=== PATIENT | female | born 1930 | race Caucasian/White ===

== ENCOUNTER 2017-10-08 12:14 | Inpatient (IN) | payer MEDICARE, MEDICAID ==
[~2017-10-08] VITALS: Ht 152.4 cm; Wt 49.9 kg
--- NOTE | 2017-10-08 12:30 | NUR ---
aaox3, bibra c/o left hip pain s/p glf, -ko. skin is warm and dry. resp is even and unlabored with nad noted. placed on monitor. will continuously monitor the patient. dr vaz at for eval.
[2017-10-08 12:50] LABS: BASOPHILS # (AUTO) 0.1 /CMM (0.0-0.2); BASOPHILS % (AUTO) 0.8 % (0.0-2.0); EOSINOPHILS # (AUTO) 0.1 /CMM (0.0-0.7); EOSINOPHILS % (AUTO) 1.2 % (0.0-6.0); HEMATOCRIT 44 % (33-45); HEMOGLOBIN 14.7 g/dL (11.5-14.8); LYMPHOCYTES # (AUTO) 1.1 /CMM (0.8-4.8); LYMPHOCYTES % (AUTO) 15.1 % (20.0-44.0); MEAN CORPUSCULAR HEMOGLOBIN 29 PG (26.0-33.0); MEAN CORPUSCULAR HGB CONC 33 g/dl (31.0-36.0); MEAN CORPUSCULAR VOLUME 86 fL (82-100); MONOCYTES % (AUTO) 14.6 % (2.0-12.0); NEUTROPHILS # (AUTO) 4.8 /CMM (1.8-8.9); NEUTROPHILS % (AUTO) 68.3 % (43.0-81.0); PLATELET COUNT (AUTO) 174 /CMM (150-450); RDW COEFFICIENT OF VARIATION 16.8 (11.5-15.0); RED BLOOD CELL COUNT(AUTO) 5.12 MIL/uL (4.0-5.2); WHITE BLOOD COUNT (AUTO) 7.1 K/uL (4.3-11.0)
[2017-10-08 12:54] LABS: CALCIUM, SERUM 9.1 mg/dL (8.5-10.1); CARBON DIOXIDE 25 mmol/L (21-32); CHLORIDE 102 mmol/L (98-107); CREATININE 0.9 mg/dL (0.6-1.3); GLUCOSE 105 mg/dL (74-106); POTASSIUM 3.9 mmol/L (3.5-5.1); SODIUM SERUM 136 mmol/L (136-145); UREA NITROGEN, BLOOD 19 mg/dL (7-18)
[2017-10-08 12:58] LABS: INR 1.06 (0.87-1.13)
[2017-10-08 13:00] LABS: ALANINE AMINOTRANSFERASE 28 U/L (12-78); ALBUMIN 3.3 g/dL (3.4-5.0); ALKALINE PHOSPHATASE 98 U/L (46-116); ASPARTATE AMINOTRANSFERASE 21 U/L (15-37); BILIRUBIN,DIRECT 0.3 mg/dL (0.0-0.2); BILIRUBIN,TOTAL 1.5 mg/dL (0.2-1.0)
[2017-10-08 13:02] LABS: TROPONIN I < 0.017 ng/mL (0.00-0.056)
--- NOTE | 2017-10-08 13:05 | NUR ---
Juwan at BS.
--- NOTE | 2017-10-08 13:40 | NUR ---
CALLED [employer] BLIND AIDE WAS PAGED.
--- NOTE | 2017-10-08 13:40 | NUR ---
ZIGZAG MACHINE OPERATOR NOTES PATIENT RECEIVED VIA GURNEY FROM ED, ALERT AND ORIENTED TO PERSON AND TIME, CONGOLESE SPEAKING BUT CAN UNDERSTAND SOME NIGERIEN. PATIENT NOTED WITH NO SOB, BREATHING EVEN AND UNLABORED. NOTED WITH NO COMPLAINT OF PAIN AT THIS TIME, NO SIGNS AND SYMPTOMS OF DISTRESS. PATIENT'S SON AT BEDSIDE. SKIN CHECK DONE, NOTED PT WITH IV PERIPHERAL LINE ON LEFT ARM, PATENT. ORIENTED PATIENT TO ROOM AND USE OF CALL LIGHT. KEPT PT SAFE AND DRY, CLEAN AND COMFORTABLE. BED IN LOW POSITION AND LOCKED IN PLACE. WILL CONTINUE TO MONITOR.
[2017-10-08] MEDS ORDERED: MAGNESIUM HYDROXIDE 30 ML UDC PO PRN (14:30)
[2017-10-08] MEDS ORDERED: ONDANSETRON HCL/PF 4 MG/2 ML VIAL IVP PRN (14:30)
[2017-10-08] MEDS ORDERED: HYDROCODONE/APAP 5/325MG 1 EACH TABLET PO PRN (14:30)
[2017-10-08] MEDS ORDERED: Z GUARD REMEDY 2 OZ OINT TP PRN (14:30)
[2017-10-08] MEDS ORDERED: DILTIAZEM HCL 50 MG IV IV PRN (14:30)
[2017-10-08] MEDS ORDERED: ZOLPIDEM TARTRATE 5 MG TABLET PO PRN (14:30)
[2017-10-08] MEDS ORDERED: MAG HYDROX/AL HYDROX/SIMETH 30 ML UDC PO PRN (14:30)
--- NOTE | 2017-10-08 15:00 | NUR ---
REPORT GIVEN TO KARIN CASTLE FOR NOEMI TELE [phone]
[2017-10-08 15:33] LABS: THYROID STIMULATING HORMONE 1.863 uIU/mL (0.358-3.74)
[2017-10-08 16:00] VITALS: BP 143/95
[2017-10-08] MEDS: IV NS 0.9% 1,000 ML IV PRN (16:41)
--- NOTE | 2017-10-08 18:30 | NUR ---
CHIEF BUILDING INSPECTOR CLOSING NOTES PATIENT RESTING COMFORTABLY IN BED, NO SOB, BREATHING EVEN AND UNLABORED, NOTED WITH NO FACIAL GRIMACING, NO SIGNS AND SYMPTOMS OF ACUTE DISTRESS. PATIENT WITH POOR SAFETY AWARENESS, PLACED BED IN LOW POSITION AND LOCKED IN PLACE. PATIENT WITH IV NS INFUSING WELL @ 75 CC/HR VIA PERIPHERAL LINE AT [facility]. KEPT PATIENT SAFE AND DRY, CLEAN AND COMFORTABLE.
--- NOTE | 2017-10-08 19:15 | NUR ---
RN OPENING NOTES RECEIVED REPORT FROM TIN PT RESTING IN BED. NO COMPLAINTS OF PAIN OR DISTRESS AT THIS TIME. TELE MONITOR: AFIB 120. WILL CONTINUE TO MONITOR. PT IV LEFT AC #20 RUNNING NS @75ML/HR. PT TOLERATING WELL. PT SAFETY PRECAUTIONS IN PLACE. BED IN LOW LOCKED POSITION, 2XSIDERAILS UP. CALL LIGHT WITHIN REACH, WILL CONTINUE TO MONITOR.
[2017-10-09 00:24] VITALS: BP 114/78
[2017-10-09 04:21] VITALS: BP 154/74
[2017-10-09 06:37] LABS: BASOPHILS % (AUTO) 0.3 % (0.0-2.0); EOSINOPHILS # (AUTO) 0.1 /CMM (0.0-0.7); EOSINOPHILS % (AUTO) 1.3 % (0.0-6.0); HEMATOCRIT 39 % (33-45); HEMOGLOBIN 12.8 g/dL (11.5-14.8); LYMPHOCYTES # (AUTO) 1.1 /CMM (0.8-4.8); MEAN CORPUSCULAR HEMOGLOBIN 29 PG (26.0-33.0); MEAN CORPUSCULAR HGB CONC 33 g/dl (31.0-36.0); MEAN CORPUSCULAR VOLUME 87 fL (82-100); MONOCYTES # (AUTO) 0.8 /CMM (0.1-1.30); MONOCYTES % (AUTO) 12.8 % (2.0-12.0); NEUTROPHILS # (AUTO) 4.4 /CMM (1.8-8.9); NEUTROPHILS % (AUTO) 68.6 % (43.0-81.0); PLATELET COUNT (AUTO) 175 /CMM (150-450); RDW COEFFICIENT OF VARIATION 16.8 (11.5-15.0); RED BLOOD CELL COUNT(AUTO) 4.48 MIL/uL (4.0-5.2); WHITE BLOOD COUNT (AUTO) 6.4 K/uL (4.3-11.0)
[2017-10-09 06:53] LABS: CALCIUM, SERUM 8.7 mg/dL (8.5-10.1); CARBON DIOXIDE 24 mmol/L (21-32); CHLORIDE 108 mmol/L (98-107); CREATININE 0.8 mg/dL (0.6-1.3); GLUCOSE 109 mg/dL (74-106); PHOSPHORUS 3.5 mg/dL (2.5-4.9); POTASSIUM 4.1 mmol/L (3.5-5.1); SODIUM SERUM 141 mmol/L (136-145); UREA NITROGEN, BLOOD 25 mg/dL (7-18)
[2017-10-09 07:00] VITALS: BP 121/76
[2017-10-09 07:08] LABS: CHOLESTEROL 130 mg/dL (<200); HDL CHOLESTEROL 61 mg/dL (40-60); LDL 61 mg/dL (0-99); TRIGLYCERIDES 49 mg/dL (30-150)
--- NOTE | 2017-10-09 07:15 | NUR ---
RN NOTES PT IS SLEEPING IN BED COMFORTABLY. PT ON RA, RESPIRATIONS ARE EVEN AND UNLABORED. IV ON LAC, INTACT AND PATENT, RUNNING NS @ 75ML/HR. SAFETY MEASURES ARE IN PLACE, CALL LIGHT IS IN REACH. WILL CONTINUE TO MONITOR.
--- NOTE | 2017-10-09 07:37 | NUR ---
RN CLOSING NOTES PT IS RESTING. IV ON LAC, INTACT AND PATENT, RUNNING NS @ 75ML/HR. SAFETY MEASURES ARE IN PLACE, CALL LIGHT IS IN REACH. WILL ENDORSE TO DAY SHIFT NURSE FOR CONTINUITY OF CARE.
[2017-10-09 08:00] VITALS: BP 121/76
[2017-10-09] MEDS: IV NS 0.9% 1,000 ML IV PRN ×2 (08:00→21:42)
--- NOTE | 2017-10-09 12:39 | NUR ---
WOUND CARE CONSULT: PT REFUSED SKIN ASSESSMENT. PT NOTED TO HAVE REDNESS TO LOWER LEGS WITH EDEMA BUT PT REFUSED HEEL ASSESSMENT AND DID NOT WANT TO BE TOUCHED OR TURNED EVEN AFTER EXPLANATION OF IMPORTANCE TO PREVENT PRESSURE ULCERS. 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 PT ON JUAN ISOFLEX LOW AIRLOSS BED. PT TO BE TURNED AND REPOSITIONED EVERY 2 HRS PT CONDITION PERMITS, HEELS TO BE FLOATED. ALL SKIN PROTECTION AND WOUND RECOMMENDATIONS DISCUSSED WITH NURSING STAFF. WILL SEE PRN. RECOMMENDATIONS MADE BASED ON PHOTO AND NURSING DOCUMENTATION. MD IN AGREEMENT WITH PLAN OF CARE.
[2017-10-09] MEDS ORDERED: HYDROGEL DRESSING 90 GM TUBE TP PRN (13:00)
[2017-10-09] MEDS: HYDROGEL DRESSING 90 GM TUBE TP SCH (15:49)
[2017-10-09 16:00] VITALS: BP 135/77
--- NOTE | 2017-10-09 18:31 | NUR ---
RN NOTES PT IS SLEEPING COMFORTABLY IN BED WITH LEGS ELEVATED. PT ON RA, RESPIRATIONS ARE EVEN AND UNLABORED. PT DENIES ANY PAIN AT THIS TIME. IV ON LAC INTACT AND PATENT, RUNNING NS @ 75ML/HR. PT WAS KEPT CLEAN AND DRY, HYDROGEL AND MEPILEX APPLIED TO SACRAL AREA FOR REDNESS. SAFETY MEASURES ARE IN PLACE, CALL LIGHT IS IN REACH. WILL ENDORSE TO [facility] SETTER RN FOR CONTINUITY OF CARE.
--- NOTE | 2017-10-09 19:38 | NUR ---
RN OPENING NOTES RECEIVED REPORT FROM ANNE. PT RESTING IN BED, NO APPARENT S/S OF PAIN OR DISTRESS. PT IV LAC RUNNING NS @75 ML/HR, PT TOLERATING FLUIDS WELL. SAFETY PRECAUTIONS IN PLACE. BED IN LOW, LOCKED POSITION, 2X SIDERAILS UP. CALL LIGHT WITHIN REACH. WILL CONTINUE TO MONITOR.
[2017-10-09 20:00] VITALS: BP 116/55
[2017-10-10] MEDS: ACETAMINOPHEN 325 MG TABLET PO PRN ×2 (03:25→20:09)
--- NOTE | 2017-10-10 03:27 | NUR ---
PT REQUESTED PAIN MEDICATION. ADMINISTERED PRN TYLENOL 650MG FOR PAIN OF 3/10. WILL CONTINUE TO MONITOR.
[2017-10-10 06:45] LABS: BASOPHILS % (AUTO) 0.2 % (0.0-2.0); EOSINOPHILS # (AUTO) 0.1 /CMM (0.0-0.7); EOSINOPHILS % (AUTO) 1.5 % (0.0-6.0); HEMATOCRIT 39 % (33-45); HEMOGLOBIN 12.8 g/dL (11.5-14.8); LYMPHOCYTES # (AUTO) 1.1 /CMM (0.8-4.8); LYMPHOCYTES % (AUTO) 17.5 % (20.0-44.0); MEAN CORPUSCULAR HEMOGLOBIN 29 PG (26.0-33.0); MEAN CORPUSCULAR HGB CONC 33 g/dl (31.0-36.0); MEAN CORPUSCULAR VOLUME 88 fL (82-100); MONOCYTES # (AUTO) 0.8 /CMM (0.1-1.30); MONOCYTES % (AUTO) 12.5 % (2.0-12.0); NEUTROPHILS # (AUTO) 4.3 /CMM (1.8-8.9); NEUTROPHILS % (AUTO) 68.3 % (43.0-81.0); PLATELET COUNT (AUTO) 185 /CMM (150-450); RDW COEFFICIENT OF VARIATION 17.3 (11.5-15.0); RED BLOOD CELL COUNT(AUTO) 4.39 MIL/uL (4.0-5.2); WHITE BLOOD COUNT (AUTO) 6.3 K/uL (4.3-11.0)
[2017-10-10 07:08] LABS: *SPE A/G RATIO 0.8 (0.7-1.7); *SPE ALBUMIN 3.1 g/dL (2.9-4.4); *SPE ALPHA-1-GLOBULIN 0.4 g/dL (0.0-0.4); *SPE ALPHA-2-GLOBULIN 0.9 g/dL (0.4-1.0); *SPE BETA GLOBULIN 1.3 g/dL (0.7-1.3); *SPE GLOBULIN, TOTAL 4.1 g/dL (2.2-3.9); *SPE M-SPIKE Not Observed g/dL (Not Observed); *SPEGAMMA GLOBULIN 1.6 g/dL (0.4-1.8)
[2017-10-10 07:09] LABS: ALANINE AMINOTRANSFERASE 25 U/L (12-78); ALBUMIN 2.4 g/dL (3.4-5.0); ALKALINE PHOSPHATASE 82 U/L (46-116); ASPARTATE AMINOTRANSFERASE 20 U/L (15-37); BILIRUBIN,TOTAL 0.9 mg/dL (0.2-1.0); CALCIUM, SERUM 8.5 mg/dL (8.5-10.1); CARBON DIOXIDE 22 mmol/L (21-32); CHLORIDE 109 mmol/L (98-107); CREATININE 0.9 mg/dL (0.6-1.3); GLUCOSE 114 mg/dL (74-106); MAGNESIUM 1.9 mg/dL (1.8-2.4); PHOSPHORUS 3.3 mg/dL (2.5-4.9); POTASSIUM 3.8 mmol/L (3.5-5.1); SODIUM SERUM 141 mmol/L (136-145); TOTAL PROTEIN, SERUM 6.4 g/dL (6.4-8.2); UREA NITROGEN, BLOOD 25 mg/dL (7-18)
--- NOTE | 2017-10-10 07:27 | NUR ---
RN CLOSING NOTES PT RESTING IN BED, NO APPARENT S/S OF PAIN OR DISTRESS. PT IV LAC RUNNING NS @75 ML/HR, PT TOLERATING FLUIDS WELL. ALL NEEDS MET. SAFETY PRECAUTIONS IN PLACE. BED IN LOW, LOCKED POSITION, 2X SIDERAILS UP. CALL LIGHT WITHIN REACH. WILL ENDORSE TO THE [facility] FOR CONTINUITY OF CARE.
--- NOTE | 2017-10-10 07:30 | NUR ---
RN MS NOTES PT IN BED, AWAKE, ALERT, VERBALLY RESPONSIVE, NO COMPLAINT OF PAIN, BREATHING PATTERN NORMAL AND NOT LABORED, IV FLUIDS INFUSING WELL, CALL LIGHT WITHIN REACH, KEPT CLINICAL AIDE BED.
[2017-10-10 08:11] VITALS: BP 131/75
[2017-10-10] MEDS: HYDROGEL DRESSING 90 GM TUBE TP SCH (09:18)
[2017-10-10] MEDS: DILTIAZEM HCL CD 240 MG PO SCH (09:18)
--- NOTE | 2017-10-10 13:13 | NUR ---
RN MS NOTES PT IN AWAKE, DENIES PAIN, NOT IN DISTRESS, PT SEEN BY PHYSICAL THERAPIST, TOLERATED EXERCISES WELL, ASSISTED TO CHAIR, PER PT, SHE WOULD LIKE TO SIT FOR A WHILE, INSTRUCTED PT TO CALL FOR ASSISTANCE IF SHE WANTS TO TRANSFER BACK TO BED, VERBALIZED UNDERSTANDING, CALL LIGHT PLACED WITHIN REACH, NEEDS ATTENDED.
[2017-10-10 16:00] VITALS: BP 126/79
[2017-10-10] MEDS: IV NS 0.9% 1,000 ML IV PRN (16:16)
--- NOTE | 2017-10-10 18:38 | NUR ---
RN MS NOTES PT IN BED, ASLEEP, EASY TO AROUSE, ALERT AND ORIENTED, NO COMPLAINT OF PAIN AT THIS TIME, BREATHING PATTERN NORMAL, ASSISTED WITH MEALS, TOLERATING CURRENT DIET WELL, SON ADARSH CAME AND VISIT, PLAN OF CARE DISCUSSED WITH SON, VERBALIZED UNDERSTANDING, PM CARE RENDERED, IV FLUIDS INFUSING WELL, ASSISTED IN TURNING AND REPOSITIONING, ALL NEEDS ATTENDED.
--- NOTE | 2017-10-10 19:30 | NUR ---
RN NOTES PT IS IN BED, ALERT AND ORIENTED X2, FINNISH SPEAKING. VS STABLE. RESPIRATIONS EVEN AND UNLABORED. NO SOB NOTED. IV ACCESS PATENT AND INTACT, INFUSING NS AT 75 ML/HR. NO REDNESS OR INFILTRATION NOTED. BED IN LOCKED AND LOWEST POSITION. CALL LIGHT WITHIN EASY REACH. WILL CONTINUE TO MONITOR AND ASSESS DURING THE SHIFT.
[2017-10-10 20:00] VITALS: BP 110/73
--- NOTE | 2017-10-10 20:13 | NUR ---
RN NOTES PATIENT C/O PAIN 01/26. TYLENOL 650 MG ADMINISTERED PRN. CONTINUE TO MONITOR.
--- NOTE | 2017-10-11 | NUR ---
RN NOTES PATIENT IN BED, ALERT AND AWAKE, NO SOB, NO COMPLAIN OF PAIN, NO RESTLESSNESS, REQUIRES FULL CARE DUE TO WEAKNESS, KEPT SAFE AND COMFORTABLE, CALL LIGHT WITHIN REACH.
--- NOTE | 2017-10-11 06:37 | NUR ---
RN CLOSING NOTES PT IS SLEEPING IN BED. VS STABLE. RESPIRATIONS EVEN AND UNLABORED. NO SOB NOTED. IV ACCESS ON THE RIGHT WRIST PATENT AND INTACT, INFUSING NS AT 75 ML/HR. NO REDNESS OR INFILTRATION NOTED. SKIN CLEAN AND DRY. ALL CARE PROVIDED NEEDED. BED IN LOCKED AND LOWEST POSITION. CALL LIGHT WITHIN EASY REACH. WILL ENDORSE TO RN DAY SHIFT FOR CONTINUITY OF CARE.
--- NOTE | 2017-10-11 07:30 | NUR ---
RN OPENING NOTES RECEIVED PT. IN BED A&OX2, INDONESIAN SPEAKING. BREATHING UNLABORED AND EVENLY ON ROOM AIR. NO S/S OF ACUTE DISTRESS. IV FLUIDS RUNNING AT 75 ML/HR. BED ALARM ON. BED IS IN LOWEST, AND LOCKED POSITION. 3 SIDE RAILS UP, AND INSTRUCTED PT. TO USE CALL LIGHT FOR ASSISTANCE. ALL NEEDS MET. WILL CONTINUE TO ASSESS AND MONITOR.
[2017-10-11 08:00] VITALS: BP_SYST 130; BP_SYST 139; BP_DIAS 83
--- NOTE | 2017-10-11 08:58 | NUR ---
XRAY PELVIS TO BE DONE AFTER P.T. RN WILL CALL WHEN PT GETS HER EXERCISE.
--- NOTE | 2017-10-11 09:41 | NUR ---
RN NOTES PT. IS RECEIVING PHYSICAL THERAPY. CALLED RADIOLOGY TO NOTIFY PT IS IN PROGRESS. PER RADIOLOGY WILL BE ABLE TO TAKE PELVIC X RAY IN AN HOUR.
[2017-10-11] MEDS: DILTIAZEM HCL CD 240 MG PO SCH (09:56)
[2017-10-11] MEDS: HYDROGEL DRESSING 90 GM TUBE TP SCH (09:58)
[2017-10-11] MEDS ORDERED: ERGOCALCIFEROL (VITAMIN D 2) 50,000 UNIT CAPSULE PO SCH (10:00)
[2017-10-11] MEDS: IV NS 0.9% 1,000 ML IV PRN (13:57)
[2017-10-11 16:00] VITALS: BP 131/84
[2017-10-11] MEDS ORDERED: FUROSEMIDE 40 MG/4 ML VIAL IV ONE (17:30)
--- NOTE | 2017-10-11 19:30 | NUR ---
RN OPENING NOTES PT IS IN BED, ALERT AND ORIENTED X2, [place] SPEAKING. VS STABLE. NO C/O PAIN AT THIS TIME. RESPIRATIONS EVEN AND UNLABORED. IV ACCESS ON THE RIGHT WRIST PATENT AND INTACT, FLUSHING WELL WITH NS. BED IN LOCKED AND LOWEST POSITION. CALL LIGHT WITHIN EASY REACH. WILL CONTINUE TO MONITOR AND ASSESS DURING THE SHIFT.
--- NOTE | 2017-10-11 19:45 | NUR ---
RN CLOSING NOTES PT IS IN BED, ALERT AND ORIENTED X2, GREENLANDIC SPEAKING. NO SOB. NO S/S OF ACUTE DISTRESS. RESPIRATIONS EVEN AND UNLABORED ON ROOM AIR. IV ACCESS ON THE RIGHT WRIST PATENT AND INTACT. BED IN LOWEST, AND LOCKED POSITION. 2 SIDE RAILS UP AND CALL LIGHT WITHIN REACH. WILL ENDORSE REPORT TO NURSE.
[2017-10-11 20:00] VITALS: BP_SYST 114; BP_SYST 128; BP_DIAS 68; BP_DIAS 75
--- NOTE | 2017-10-12 06:18 | NUR ---
RN NOTES PATIENT IS ALERT AND AWAKE, NO SOB, NO DISTRESS, NO COMPLAIN OF PAIN, NO ADVERSE CHANGE OF CONDITION DURING SHIFT, PROVIDED GOOD PERINEAL CARE, ALL NEEDS ATTENDED, CALL LIGHT WITHIN REACH.
[2017-10-12 06:44] LABS: BASOPHILS % (AUTO) 0.1 % (0.0-2.0); EOSINOPHILS % (AUTO) 0.3 % (0.0-6.0); HEMATOCRIT 44 % (33-45); HEMOGLOBIN 14.5 g/dL (11.5-14.8); LYMPHOCYTES # (AUTO) 0.7 /CMM (0.8-4.8); LYMPHOCYTES % (AUTO) 6.6 % (20.0-44.0); MEAN CORPUSCULAR HEMOGLOBIN 29 PG (26.0-33.0); MEAN CORPUSCULAR HGB CONC 33 g/dl (31.0-36.0); MEAN CORPUSCULAR VOLUME 88 fL (82-100); MONOCYTES % (AUTO) 8.5 % (2.0-12.0); NEUTROPHILS # (AUTO) 9.6 /CMM (1.8-8.9); NEUTROPHILS % (AUTO) 84.5 % (43.0-81.0); PLATELET COUNT (AUTO) 255 /CMM (150-450); RDW COEFFICIENT OF VARIATION 17.9 (11.5-15.0); RED BLOOD CELL COUNT(AUTO) 5.06 MIL/uL (4.0-5.2); WHITE BLOOD COUNT (AUTO) 11.3 K/uL (4.3-11.0)
[2017-10-12 07:23] VITALS: BP 141/58
--- NOTE | 2017-10-12 07:30 | NUR ---
RN OPENING NOTES RECEIVED PT. IN BED A&OX1-2. BREATHING UNLABORED AND EVENLY ON OXYGEN 2L/MIN VIA NASAL CANNULA . NO S/S OF ACUTE DISTRESS. RIGHT WRIST IV ACCESS IS INTACT AND PATENT WITH SALINE FLUSH. BED ALARM ON. BED IS IN LOWEST AND LOCKED POSITION. 3 SIDE RAILS UP, AND INSTRUCTED PT. TO USE CALL LIGHT FOR ASSISTANCE. WILL CONTINUE TO ASSESS AND MONITOR.
[2017-10-12 07:37] LABS: CALCIUM, SERUM 9.4 mg/dL (8.5-10.1); CARBON DIOXIDE 23 mmol/L (21-32); CHLORIDE 102 mmol/L (98-107); CREATININE 1.1 mg/dL (0.6-1.3); GLUCOSE 143 mg/dL (74-106); POTASSIUM 3.8 mmol/L (3.5-5.1); SODIUM SERUM 139 mmol/L (136-145); UREA NITROGEN, BLOOD 27 mg/dL (7-18)
[2017-10-12] MEDS: DILTIAZEM HCL CD 240 MG PO SCH (08:09)
[2017-10-12] MEDS: HYDROGEL DRESSING 90 GM TUBE TP SCH (08:14)
--- NOTE | 2017-10-12 10:00 | NUR ---
RN NOTES PT. WAS SEEN AND EXAMINED BY SPEECH THERAPIST FOR SWALLOW EVALUATION. PER ST RECOMMENDATION PT. CAN SWALLOW THIN LIQUIDS, AND CHANGE DIET TEXTURE TO SOFT.
--- NOTE | 2017-10-12 15:39 | NUR ---
RN NOTES PERFORMED WOUND CARE AND DRESSING CHANGE TO SACRAL AREA. CLEANED WITH NORMAL SALINE, HYDROGEL APPLIED AND COVERED WITH MEPILEX. PT. TOLERATED WELL.
[2017-10-12 16:05] VITALS: BP 120/68
[2017-10-12 16:06] VITALS: BP 120/68
[2017-10-12] MEDS: ACETAMINOPHEN 325 MG TABLET PO PRN (16:18)
--- NOTE | 2017-10-12 18:46 | NUR ---
RN CLOSING NOTES PT. IN BED A&OX2. BREATHING UNLABORED AND EVENLY ON OXYGEN 2L/MIN VIA NASAL CANNULA . NO S/S OF ACUTE DISTRESS. RIGHT WRIST IV ACCESS IS INTACT AND PATENT WITH SALINE FLUSH. BED ALARM ON. BED IS IN LOWEST AND LOCKED POSITION. 3 SIDE RAILS UP, AND INSTRUCTED PT. TO USE CALL LIGHT FOR ASSISTANCE. WILL ENDORSE REPORT TO NURSE.
[2017-10-12 20:00] VITALS: BP 102/58
--- NOTE | 2017-10-12 20:00 | NUR ---
ms/rn opening notes PATIENT IN BED, AWAKE, ALERT X3, ABLE TO VERBALIZE NEEDS, HAD SOME SNACKS AND ABLE TO TOLERATE FOOD. NO PAIN VERBALIZED AND NO GUARDING AND GRIMACE OBSERVED. RESPIRATION EVEN AND UNLABORED, CALL LIGHTS WITHIN REACH. WILL CONTINUE TO MONITOR.
--- NOTE | 2017-10-13 06:30 | NUR ---
MS/RN NOTES PATIENT ABLE TO SLEEP DURING THE NIGHT, RESPIRATIONS EVEN AND UNLABORED, NO GRIMACE OR GUARDING OBSERVED, MONITORING FOR SAFETY, BED IN LOCK POSITION, CALL LIGHTS WITHIN REACH, PROVIDE FLUIDS. KEPT SKIN DRY AND INTACT. WILL CONTINUE TO MONITOR,
--- NOTE | 2017-10-13 08:00 | NUR ---
RN NOTES RECEIVED PATIENT IN THE ROOM. A/O X/3 , MALAGASY SPEAKER, ON 02 2L NC, NO RESPIRATORY DISTRESS, PATIENT REFUSED PAIN AT THIS TIME, ENCOURAGED TO EXPRESS FEELINGS AND CONCERNS, ASSIST TURN AND REPOSITION Q 2 HR, NEEDS ATTENDED AND ANTICIPATED, IV LINE ON RIGHT HAND INTACT, CALL LIGHT WIHIN TO REACH, SAFETY PRECAUTION MAINTAINED ALL THE TIME.
[2017-10-13 08:15] VITALS: BP 136/67
[2017-10-13] MEDS: HYDROGEL DRESSING 90 GM TUBE TP SCH (09:54)
[2017-10-13 09:57] VITALS: BP 136/67
[2017-10-13] MEDS: DILTIAZEM HCL CD 240 MG PO SCH (09:57)
[2017-10-13] MEDS ORDERED: DILT240C88 PO (10:47)
--- NOTE | 2017-10-13 12:00 | NUR ---
RN NOTES PATIENT IN THE BED, NO ACUTE DISTRESS, NO C/O PAIN AT THIS TIME, PATIENT GOING TO D/C SNF. CALL LIGHT WITHIN TO REACH, SAFETY PRECAUTION MAINTAINED ALL THE TIME.
--- NOTE | 2017-10-13 15:00 | NUR ---
rn notes PATIENT IN THE BED, REFUSED PAIN AT THIS TIME, ASSIST TURN AND REPOSITION Q 2 HR, NO RESPIRATORY DISTRESS, CALL LIGHT WITHIN TO REACH, CONTINUED MONITORING.
--- NOTE | 2017-10-13 15:20 | NUR ---
DISCHARGE NOTES PATIENT DISCHARGE AT THIS TIME [facility]ING [facility]. PATIENT A/O X3, MED COMPLIANT, V/S STABLE, NO C/O PAIN AT THIS TIME, MEDICALLY STABLE. MED RECONCILIATION, AND DISCHARGE ORDER REVIEWED, AND EXPLAINED TO. REPORT GIVEN [facility]. RN VERBALIZED UNDERSTANDING, DRESSING CHANGED, BELONGING RETURNED BACK TO THE PATIENT. PATIENT ADOBE LAYER BY AMBULANCE. SON NAME ADARSH AWARE OF DISCHARGE PHONE # . PATIENT SIGN PAPERWORK, PICTURE TAKEN.
== END 2017-10-13 15:15 | DRG 536 ==
LOC: ER 12:16 → EDBD 12:16 → TELE 14:33 → MED 10-09 11:22
PROVIDERS: ADMIT Internal Medicine; ATTEND Internal Medicine
DX: S32.592A Other specified fracture of left pubis, initial encounter for closed fracture (principal); E87.70 Fluid overload, unspecified; I48.91 Unspecified atrial fibrillation; F03.90 Unspecified dementia, unspecified severity, without behavioral disturbance, psychotic disturbance, mood disturbance, and anxiety; I10 Essential (primary) hypertension; W19.XXXA Unspecified fall, initial encounter; M19.90 Unspecified osteoarthritis, unspecified site; M17.0 Bilateral primary osteoarthritis of knee; Y92.9 Unspecified place or not applicable; M47.816 Spondylosis without myelopathy or radiculopathy, lumbar region; M85.80 Other specified disorders of bone density and structure, unspecified site; W18.30XA Fall on same level, unspecified, initial encounter; Y92.009 Unspecified place in unspecified non-institutional (private) residence as the place of occurrence of the external cause
CPT/HCPCS: 36415; 71010-TC; 72170-TC; 72192-TC; 73560-TC; 80048-TC; 80053-TC; 80061-TC; 80076-TC; 82306; 83735-TC; 84100-TC; 84155; 84165; 84439-TC; 84443-TC; 84484-TC; 85025-TC; 85730-TC; 86850-TC; 87081-TC; 92611-TC; 93307-TC; 97112-TC; 97116-TC; 97530-TC; A4606; A6248; A6402; J1940; J2405; J7030; Z7610